=== PATIENT | female | born 1980 | race African-American/Black ===

== ENCOUNTER 2020-02-21 14:00 | Outpatient (CLI) | payer OTHER, BC, SELFPAY ==
[2020-02-21 15:08] LABS: Hemoglobin 13.2 g/dL (12.0-15.0); Mean Corpuscular HGB Conc 35.7 g/dl (32-36); Mean Corpuscular Hemoglobin 29.3 pg (26-34); Mean Platelet Volume 10.9 fl (7.4-10.4); Platelet Count Result 159 k/mm3 (150-375); Red Blood Count 4.51 M/mm3 (4.2-5.4); White Blood Count 9.4 K/mm3 (4.5-10.0)
--- NOTE | 2020-02-21 17:23 | PM.IMHP ---
H&P: HPI History of Present Illness Date/Time: 02/21/20 17:23 Chief complaint: PRE OP Narrative: Deanna Palafox is a 40 year old female [id number] @39 weeks ega Due 02/28/20 by 1st trimester ultrasound with a history of AMA- negative workup and genetics; Prior c/s who desires repeat c section; MTHFR on rx now being admitted for Repeat Low Transverse C section under spinal anesthesia with duramorph. I have explained her condition procedure and risks involved including but not limited to : bleeding, infection, injury to bladder bowel baby, dvt, pneumonia, wound infection, endometritis, uti and risk of anesthesia. She understands accepts and agrees to proceed Informed consent obtained. Review of Systems Review of Systems: All systems reviewed & are unremarkable except as noted in HPI and below Constitutional: Constitutional: Reports no additional constitutional complaints Eyes: Eyes: Reports no additional eye complaints ENT: Reports system reviewed and no additional complaints, except as documented Cardiovascular: Cardiovascular: Reports no additional cardiovascular complaints Respiratory: Respiratory: Reports no additional respiratory complaints Gastrointestinal: Gastrointestinal: Reports no additional gastrointestinal complaints Genitourinary: Genitourinary: Reports no additional female genitourinary complaints Musculoskeletal: Musculoskeletal: Reports no additional musculoskeletal complaints Integumentary/Breasts: Skin/Breast: Reports system reviewed and no additional complaints, except as docu Neurologic: Reports system reviewed and no additional complaints, except as documented Psychiatric: Psychiatric: Reports no additional psychiatric complaints Endocrine: Endocrine: Reports no additional endocrine complaints Hematologic/Lymphatic: Hematologic/Lymphatic: Reports no additional hematologic/lymphatic complaints Allergic/Immunologic: Allergic/Immunologic: Reports no additional allergic/immunologic complaints [facility] Past Medical History Medical History (Updated 02/21/20 @ 17:50 by Max Asher MD) Allergic rhinitis AMA (advanced maternal age) multigravida 35+ Delivered by delivery following previous delivery PATTI (generalized anxiety disorder) GERD (gastroesophageal reflux disease) 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 MDD (major depressive disorder) SAB (spontaneous ) 2007 Sinusitis UTI (urinary tract infection) Surgical History Surgical History (Updated 02/21/20 @ 17:39 by Max Asher MD) Previous section 2007 Previous section 2016 Family History Family History Mother Presence of stent in coronary artery Acute myocardial infarction Grandparent Diabetes mellitus Breast cancer Hypertension Social History Social History Smoking status: Never smoker Second hand tobacco smoke exposure: No Alcohol intake: never Substance use: never Substance use type: does not use Living arrangements: with family Occupation/Education: occupation 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 Gender identity (if verbalized by the patient): Female Sexual Orientation (if Verbalized by the Patient): Straight or Heterosexual Spiritual care concerns: No Agree to blood products: Yes Comments OB history 2006 6week sab no d&c 03/16/08 8-13 male @42 weeks primary LTCS CPD 05/07/16 9-6 female @40 weeks repeat LTCS Prior c/s Meds Home Medications and Allergies Home Medications Medication Instructions Recorded Confirmed Type PNV cmb#95-ferrous fumarate-FA 1 tablet PO DAILY 01/30/20 01/30/20 History [] Allergies Allergy/AdvReac Type Severity Reaction Status Date / Time cat dander Allergy Itching Verified 01/30/20 15:52 Exam Const: General: no acute distress HENMT: H
[2020-02-22 10:01] LABS: Rapid Plasma Reagin Non-Reactive (NonReactive)
== END 2020-02-21 14:01 | disposition home or self-care (01) ==
LOC: ANHLAB 14:04
PROVIDERS: PCP Obstetrics & Gynecology; Visit Provider Obstetrics & Gynecology
DX: Z34.93 Encounter for supervision of normal pregnancy, unspecified, third trimester (principal); Z3A.00 Weeks of gestation of pregnancy not specified
CPT/HCPCS: 36415; 85027; 86592; 86850; 86900; 86901

== ENCOUNTER 2020-02-22 08:31 | Inpatient (IN) | payer OTHER, BC, SELFPAY ==
--- NOTE | 2020-01-30 16:18 | PC.NURSE ---
VERIFIED WITH OR SCHEDULE AND PATIENT-C/S ON 02/22/20 AT 1030 PATIENT GIVEN REQUISITION FOR PRE-OP LAB DRAW ON 02/21/20
--- NOTE | 2020-02-21 17:55 | HP_ITS ---
This report was moved to the correct visit, [id number] on 02/27/20. Original report was signed by Dr. Asher on 02/21/20 at 175. H&P: HPI History of Present Illness Date/Time: 02/21/20 17:23 Chief complaint: PRE OP Narrative: Deanna Palafox is a 40 year old female [id number] @39 weeks ega Due 02/28/20 by 1st trimester ultrasound with a history of AMA- negative workup and genetics; Prior c/s who desires repeat c section; MTHFR on rx now being admitted for Repeat Low Transverse C section under spinal anesthesia with duramorph. I have explained her condition procedure and risks involved including but not limited to : bleeding, infection, injury to bladder bowel baby, dvt, pneumonia, wound infection, endometritis, uti and risk of anesthesia. She understands accepts and agrees to proceed Informed consent obtained. Review of Systems Review of Systems: All systems reviewed & are unremarkable except as noted in HPI and below Constitutional: Constitutional: Reports no additional constitutional complaints Eyes: Eyes: Reports no additional eye complaints ENT: Reports system reviewed and no additional complaints, except as documented Cardiovascular: Cardiovascular: Reports no additional cardiovascular complaints Respiratory: Respiratory: Reports no additional respiratory complaints Gastrointestinal: Gastrointestinal: Reports no additional gastrointestinal complaints Genitourinary: Genitourinary: Reports no additional female genitourinary complaints Musculoskeletal: Musculoskeletal: Reports no additional musculoskeletal complaints Integumentary/Breasts: Skin/Breast: Reports system reviewed and no additional complaints, except as docu Neurologic: Reports system reviewed and no additional complaints, except as documented Psychiatric: Psychiatric: Reports no additional psychiatric complaints Endocrine: Endocrine: Reports no additional endocrine complaints Hematologic/Lymphatic: Hematologic/Lymphatic: Reports no additional hematologic/lymphatic complaints Allergic/Immunologic: Allergic/Immunologic: Reports no additional allergic/immunologic complaints [facility] Past Medical History Medical History (Updated 02/21/20 @ 17:50 by Max Asher MD) Allergic rhinitis AMA (advanced maternal age) multigravida 35+ Delivered by delivery following previous delivery PATTI (generalized anxiety disorder) GERD (gastroesophageal reflux disease) Heterozygous MTHFR mutation [id number] MDD (major depressive disorder) SAB (spontaneous ) 2007 Sinusitis UTI (urinary tract infection) Surgical History Surgical History (Updated 02/21/20 @ 17:39 by Max Asher MD) Previous section 2008 Previous section 2016 Family History Family History Mother Presence of stent in coronary artery Acute myocardial infarction Grandparent Diabetes mellitus Breast cancer Hypertension Social History Social History Smoking status: Never smoker Second hand tobacco smoke exposure: No Alcohol intake: never Substance use: never Substance use type: does not use Living arrangements: with family Occupation/Education: occupation 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
[2020-02-22] VITALS (57 sets, daily range): BP systolic 115–143; BP diastolic 65–90; PULSE 68–107; RESP 16–18; TEMP 36.6–36.8; O2SAT 94–100; BMI 39.9
--- NOTE | 2020-02-22 09:14 | WPDOBADMIT ---
Obstetrics - Admit Note Admission Note: record reviewed. No pertinent additions to the history and/or any subsequent changes in the physical findings that are not consistent with the expected course of the were found. Additions to the history and/or subsequent changes in the physical findings follow. None. Preop for repeat c section under spinal no changes to H&P
--- NOTE | 2020-02-22 09:15 | WPDHPUPDATE1 ---
History and Physical Update Update Date/Time: 02/22/20 09:15 History and Physical has been reviewed, including an updated exam of the patient. There are NO changes in the patient's condition. Risks, benefits, and alternatives have been discussed and questions answered. Patient agrees to proceed with procedure.
[2020-02-22] MEDS: LACTATED RINGERS 1,000 ML 125 ML IV CONT (09:29)
--- NOTE | 2020-02-22 09:58 | LDADM ---
This patient, Deanna Palafox, was admitted to Labor/Delivery/Recovery 119 on 02/22/20 at 08:31. Plans for section, pain management and were discussed with patient. Patient/family oriented to hospital policies and general routines including ID bracelet, bed and alarms, visiting hours, pain management, procedures, bathroom and other care routines, personal items, smoking policy, room service/diet and guest tray routines, security routines, call light, and visiting hours. Patient/Family are encouraged to report perceived risks to care and to ask questions if they do not understand what they are told or what they should do. See OBIX for further documentation.
--- NOTE | 2020-02-22 10:07 | P.PNAN_ITS ---
Anes - Initial Pre Proc Eval Procedure: Operation Date: 02/22/20 10:30 Proposed Procedures p Repeat Low Transverse Section - Max Asher MD Date/Time: 02/22/20 10:07 Surgeon: Max Asher MD Pre Op Diagnosis: C Section Patient Data Age: 40 Gender: F Height: 5 ft 8 in Weight: 119 kg Last Vital Signs Pulse 106 H 02/22/20 09:03 BP 143/81 H 02/22/20 09:03 Allergies Allergy/AdvReac Type Severity Reaction Status Date / Time cat dander Allergy Itching Verified 01/30/20 15:52 Home Medications Medication Instructions Recorded Confirmed Type PNV cmb#95-ferrous fumarate-FA 1 tablet PO DAILY 01/30/20 01/30/20 History [] Patient hx anesthesia problems: post op nausea/vomiting Family hx anesthesia problems: none PMFSH Past Medical History Medical History Allergic rhinitis AMA (advanced maternal age) multigravida 35+ Delivered by delivery following previous delivery PATTI (generalized anxiety disorder) GERD (gastroesophageal reflux disease) Heterozygous MTHFR mutation [id number] MDD (major depressive disorder) SAB (spontaneous ) 2007 Sinusitis UTI (urinary tract infection) Surgical History Surgical History Previous section 2008 Previous section 2016 Family History Family History Mother Presence of stent in coronary artery Acute myocardial infarction Grandparent Diabetes mellitus Breast cancer Hypertension Social History Social History Smoking status: Never smoker Second hand tobacco smoke exposure: No Alcohol intake: never Substance use: never Substance use type: does not use 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 Gender identity (if verbalized by the patient): Female Spiritual care concerns: No Agree to blood products: Yes Anes - Eval Final PreProcedure Day of Procedure 02/22/20 10:07 Patient weight: morbidly obese Heart: regular rate and rhythm Lungs: clear to auscultation Airway: Mallampati scale class II Neurological: alert and oriented Last oral intake: >/= 8 hours ASA classification: III Emergent: no Anesthetic plan: proceed Anesthesia type and monitoring: regional spinal and standard monitoring Informed Consent: The patient's anesthetic plan and its attendant risks and benefits were discussed with the patient/family/POA. Questions were solicited and answers provided to the satisfaction of the patient/family/POA.
[2020-02-22] MEDS: ceFAZolin 2 GM/D5W 50 ML 2 GM/50 ML BAG IVPB (10:11)
--- NOTE | 2020-02-22 11:11 | PM.OBPRVD ---
OB - Delivery Note Procedure Delivery date: 02/22/20 Procedure: Procedures Operation Date: 02/22/20 10:30 Repeat LOw transverse c section withdelivery of viable female and placenta events: Previous Intrapartal events: None Delivery monitor: external FHT and external uterine Route of delivery: Specimen: Yes (placenta) Estimated blood loss (mL): 540 Anesthesia type: Spinal Disposition: PACU Complications: none Baby Date of : 02/22/20 Time of : 10:38 Weeks of gestation at delivery: 40 Infant gender: Female Weight (pounds): 8 Weight (ounces): 13 presentation: vertex position: Left Occiput Anterior Placenta delivery description: Manual Removal and Normal Configuration cord vessel description: 3 Vessels and Nuchal Cord score one minute: 9 score five minutes: 9
--- NOTE | 2020-02-22 11:17 | PM.PROC ---
Procedure Note - Detailed Date of procedure: 02/22/20 Pre-op diagnosis: C Section TERM Prior c section desires repeat c section AMA-Advanced Maternal Age MTHFR PATTI MDD Post-op diagnosis: same (Delivered Viable Female infant) Procedure performed: repeat c section with delivery of viable female infant and placenta Description of procedure: The patient was given informed consent she was taken to the operating room where spinal anesthetic was administered she was placed in the supine position had a Portillo catheter inserted her abdomen was shaved and then her abdomen was prepped and draped in the usual sterile fashion. An anesthesiometer was used to test for adequate anesthesia and a time-out was performed A Pfannenstiel incision was made to the skin in the old scar was excised using electrocautery. The fascia was entered with electrocautery extended laterally and undermined inferiorly and superiorly. The rectus muscles were in the midline and the peritoneum was opened and digitally dissected a transverse incision was then made to the uterus and upon entry clear amniotic fluid was identified. the vertex was then delivered to the abdominal incision without difficulty a nuchal cord was reduced the viable female infant was delivered and placed onto the maternal abdomen where the nose and throat were bulb suctioned cord was clamped and cut time of delivery 10:38 a.m. on 02/22/2020 scores 9 and 9 at 1 and 5 minutes respectively. Cord gases were obtained cord blood was obtained 10 units of Pitocin was given intra myometrially the placenta was delivered manually intact with a three-vessel cord. The blood clots and membranes removed from the intrauterine cavity with the uterus externalized the uterus incision was then repaired in 2 layers with 0 Vicryl suture in a running interlocking fashion the 2nd being an imbricating stitch and good hemostasis resulted. Following this blood clots removed from the cul-de-sac both lateral gutters with the uterus returned to the peritoneal cavity the sponge needle and instrument counts were correct. The anterior peritoneum and rectus muscles were appropriately reapproximated with 0 Vicryl suture in a running fashion. The fascia was then closed with 2. Quill S RS system bilaterally. The subcutaneous tissues were irrigated with saline and hemostasis obtained by cauterization Floridalma's fascia reapproximated with 3 0 plain in a running fashion. The skin was then closed with absorbable vivian in his or by NS or be followed by Dermabond followed by Aquacel dressing the patient was taken to the recovery room in stable condition. The baby was taken to the nursery in stable condition the mom was taken to the recover room on OB in stable condition. Antibiotic prophylaxis was given with Ancef 2 g prior to delivery VTE prophylaxis with SCDs Counts correct Uterus tubes and ovaries normal Baby girl named Rowan 8 lb 13 oz 4010 g Apgars 9 and 9 time of delivery 1038 a.m. 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
[2020-02-22] MEDS: MORPHINE SULFATE 2 MG/ML INJ 3 MG IV PUSH ×3 (11:53→12:22)
[2020-02-22] MEDS: ONDANSETRON INJ 4 MG/2 ML VIAL IV PUSH (12:03)
[2020-02-22] MEDS: diphenhydrAMINE HCl INJ 50 MG/ML VIAL 25 MG IV PUSH (12:03)
[2020-02-22] MEDS: KETOROLAC 30 MG/ML VIAL (*BKC) IV PUSH (12:49)
[2020-02-22] MEDS: OXYTOCIN 30 UNITS/NS 500 ML 30 UNITS/500 ML BAG 125 UNITS IV CONT (12:55)
--- NOTE | 2020-02-22 13:58 | PM.OBDSVD ---
DS: Admitting Diagnosis Admitting Diagnosis Admitting Diagnosis: Repeat C Section Term AMA-advanced maternal age MTHFR MDD PATTI Allergic rhinitis DS: Discharge Diagnosis Discharge Diagnosis (1) Term delivered: Code(s): O80 - Encounter for full-term uncomplicated delivery Status: Acute (2) Delivered by delivery following previous delivery: Code(s): O34.219 - Maternal care for unspecified type scar from previous delivery Status: Acute (3) Heterozygous MTHFR mutation [id number]: Code(s): E72.12 - Methylenetetrahydrofolate reductase deficiency Status: Acute (4) MDD (major depressive disorder): Code(s): F32.9 - Major depressive disorder, single episode, unspecified Status: Acute (5) PATTI (generalized anxiety disorder): Code(s): F41.1 - Generalized anxiety disorder Status: Acute (6) Allergic rhinitis: Code(s): J30.9 - Allergic rhinitis, unspecified Status: Acute (7) AMA (advanced maternal age) multigravida 35+: Code(s): O09.529 - Supervision of elderly multigravida, unspecified trimester Status: Acute OB - DS: Summary Hospital Course Time spent discussing smoking cessation with patient: 3 to 10 minutes OB Procedures : NST and Ultrasound OB Procedures Intrapartum: (repeat low transverse) low cervical, transverse OB Procedures: : Antibiotics Peripartum Data Delivery Method: Section Procedures: Procedures Operation Date: 02/22/20 10:30 repeat low transverse c section complications: none Fowler 1: Gender: Female (JEWELS) Disposition of : home Status at Discharge Functional status at discharge: independent ambulation Overall status at discharge: patient is back to baseline Time Spent with Patient Time attestation: Total time spent providing and/or coordinating discharge services: Time spent: Less than 30 minutes Exam Const: General: comfortable and no acute distress Orientation/consciousness: patient oriented x3 Limitations: no limitations HENMT: Head: normal to inspection Ears: hearing grossly normal bilaterally General nose exam: Normal external nose present Face and sinus: normal facial exam Mouth: Yes Normal oral and palatal mucosa present Throat: posterior oropharynx normal Eyes: General: appearance normal, both eyes and all related structures Neck: Neck: normal visual inspection and full ROM Chest: Breast/axilla inspection: normal inspection of the breasts Resp: Effort & Inspection: normal respiratory effort Auscultation: clear to auscultation bilaterally Cardio: Rate: regular rate GI: GI Palp: Yes Soft to palpation Percussion: Yes normal to percussion Auscultation: normal bowel sounds : General: Yes bladder normal to inspection Back/Spine/Pelvis: Back: no CVA tenderness Cervical Spine: normal cervical lordosis Skin: General skin exam: normal color Neuro: General: oriented to person, oriented to place, oriented to time, patient oriented x3, gait normal, tone normal, moves all extremities and Normal light touch and pain sensation Cranial nerves: Yes CN's II-XII intact bilaterally Cognition (Neuro): normal cognition Speech: normal speech Gait exam (Neuro): Normal gait present Motor exam (neuro): 5/5 motor strength present throughout Sensory Exam: normal sensation Extrem: General: normal to inspection, full ROM, capillary refill normal and edema Psych: Appearance: grossly normal and well kempt Mental Status: mental status grossly normal Affect: normal affect Attitude: cooperative Thought content: Yes Normal thought content present Judgement: Good judgement present (Psych) Discharge Plan Discharge Attending physician on discharge: Max Asher Discharging Clinician: Max Asher Anticipated Discharge Date/Time: 02/24/20 13:55 Patient Disposition: Home, Self-Car
--- NOTE | 2020-02-22 16:09 | PC.NURSE ---
1410-Patient transferred to post room #284 via stretcher. Support person present. Oriented to unit, room, information board, rooming in, admission packet and security measures. Patient verbalizes understanding.
[2020-02-22] MEDS: IBUPROFEN 400 MG TABLET 800 MG PO ×2 (16:50→22:48)
[2020-02-22] MEDS: DEXTROSE 5%/0.45% SOD CHL 1,000 ML 125 ML IV CONT (17:34)
[2020-02-22] MEDS: SIMETHICONE 80 MG TAB.CHEW PO ×2 (19:58→22:47)
[2020-02-23 04:50] VITALS: BP 105/65; PULSE 91; RESP 16; TEMP 36.2
[2020-02-23] MEDS: SIMETHICONE 80 MG TAB.CHEW PO ×5 (04:55→20:30)
[2020-02-23] MEDS: IBUPROFEN 400 MG TABLET 800 MG PO ×3 (04:55→20:30)
[2020-02-23 06:03] LABS: Basophils Percent Auto 0.2 % (0.2-1.2); Eosinophils Absolute Auto 0.1 K/mm3 (0-0.3); Eosinophils Percent Auto 0.4 % (0-4.4); Hematocrit 33.8 % (37.0-47.0); Immature Granulocyte Absolute 0.15 K/mm3 (0.00-0.031); Immature Granulocyte Percent A 1.1 % (0-0.5); Lymphocytes Absolute Auto 1.91 K/mm3 (0.9-3.2); Lymphocytes Percent Auto 14.5 % (18.3-44.2); Mean Corpuscular HGB Conc 35.5 g/dl (32-36); Mean Corpuscular Hemoglobin 29.1 pg (26-34); Mean Platelet Volume 10.7 fl (7.4-10.4); Monocytes Absolute Auto 1.1 K/mm3 (0.1-0.6); Monocytes Percent Auto 8.2 % (2.6-8.5); Neutrophils Percent Auto 75.6 % (45.5-73.1); Platelet Count Result 155 k/mm3 (150-375); Red Blood Count 4.12 M/mm3 (4.2-5.4); Red Cell Distribution Width 12.8 % (11.5-14.5); White Blood Count 13.2 K/mm3 (4.5-10.0)
--- NOTE | 2020-02-23 07:00 | PC.NURSE ---
PT introductions made and plan of care discussed per post op c section, pain management, bottle feeding, daily care activities. PT verbalized understanding of such care.
--- NOTE | 2020-02-23 07:40 | WPDANLDPN2 ---
Anes-Prog Note L&D Date/Time: 02/23/20 07:40 Comfortable throughout: section Neuraxial method: spinal Epidural/Spinal procedure site: clean & non-tender Neuro status: Neuro function grossly intact. Cardiovascular status: normal Respiratory status: normal Airway patency: baseline Mental status: baseline Post-Op hydration status: normal Vital Signs: Last Vital Signs Temp 36.2 C L 02/23/20 04:50 Pulse 91 02/23/20 04:50 Resp 16 02/23/20 04:50 BP 105/65 02/23/20 04:50 Pulse Ox 98 02/22/20 23:00 I/O: Intake & Output 02/22/20 02/22/20 02/23/20 15:59 23:59 07:59 Intake Total 50 1691 400 Output Total 900 5091 493 Balance -850 -309 -200 Post-procedural complaints: none Patient feedback: Patient satisfied with anesthetic care.
--- NOTE | 2020-02-23 07:40 | WPDANLDNPN2 ---
Anes-Prog Note L&D-Neuraxial Date/Time: 02/23/20 07:40 Neuraxial medications: intrathecal PF morphine Opiod-related complaints: none Patient feedback: Patient satisfied with post-operative pain management.
--- NOTE | 2020-02-23 07:45 | PM.OBPNVD ---
OB - PN: Subj Subjective Date/time seen: 02/23/20 07:46 40yo AAF G3 now P3 POD#1 after Repeat c/s of viable female no complaints Patient comments: no complaints, pain well controlled, incisional pain and tolerating diet baby status: doing well and bottle feeding well feeding status: exclusively bottle feeding OB - PN: Obj Data Labs CBC & Chem 7: 02/23/20 05:05 Labs: Laboratory Results - last 24 hr 02/23/20 05:05 WBC 13.2 H RBC 4.12 L Hgb 12.0 Hct 33.8 L MCV 82.0 MCH 29.1 MCHC 35.5 RDW 12.8 Plt Count 155 MPV 10.7 H Immature Gran % (Auto) 1.1 H Neut % (Auto) 75.6 H Lymph % (Auto) 14.5 L Parmer % (Auto) 8.2 Eos % (Auto) 0.4 Baso % (Auto) 0.2 Lymph # (Auto) 1.91 Parmer # (Auto) 1.1 H Eos # (Auto) 0.1 Baso # (Auto) 0.0 Abs Immat Gran (auto) 0.15 H Absolute Neuts (auto) 10.0 H Absolute Nucleated RBC 0.0 Nucleated RBC % 0.0 OB - PN A/P Assessment and Plan (1) Term delivered: Code(s): O80 - Encounter for full-term uncomplicated delivery Status: Acute (2) Delivered by delivery following previous delivery: Code(s): O34.219 - Maternal care for unspecified type scar from previous delivery Status: Acute Assessment and Plan: continue post op care (3) AMA (advanced maternal age) multigravida 35+: Code(s): O09.529 - Supervision of elderly multigravida, unspecified trimester Status: Acute (4) Heterozygous MTHFR mutation [id number]: Code(s): E72.12 - Methylenetetrahydrofolate reductase deficiency Status: Acute (5) PATTI (generalized anxiety disorder): Code(s): F41.1 - Generalized anxiety disorder Status: Acute (6) MDD (major depressive disorder): Code(s): F32.9 - Major depressive disorder, single episode, unspecified Status: Acute (7) Allergic rhinitis: Code(s): J30.9 - Allergic rhinitis, unspecified Status: Acute Time Spent With Patient Time: Total time spent is greater than 50% in coordination of care (as documented) at patient's floor/unit and/or counseling patient:30 min Review of Systems Review of Systems: All systems reviewed & are unremarkable except as noted in HPI and below Constitutional: Constitutional: Reports no additional constitutional complaints Cardiovascular: Cardiovascular: Reports no additional cardiovascular complaints Respiratory: Respiratory: Reports no additional respiratory complaints Gastrointestinal: Gastrointestinal: Reports no additional gastrointestinal complaints Genitourinary: Genitourinary: Reports no additional female genitourinary complaints Integumentary/Breasts: Skin/Breast: Reports system reviewed and no additional complaints, except as docu Neurologic: Reports system reviewed and no additional complaints, except as documented Exam Const: General: comfortable, alert and awake Orientation/consciousness: patient oriented x3 Chest: Breast/axilla inspection: normal inspection of the breasts Breast/axilla palpation: normal palpation of the breasts Resp: Effort & Inspection: normal respiratory effort Auscultation: clear to auscultation bilaterally Cardio: Rate: regular rate GI: Inspection: normal to inspection and incision (clean dry intact) Percussion: Yes normal to percussion Auscultation: normal bowel sounds : General: Yes no CVA tenderness Urinary Catheter: Urinary Catheter: patent and draining and urine clear Psych: Appearance: grossly normal Mental Status: mental status grossly normal Affect: normal affect Attitude: cooperative Judgement: Good judgement present (Psych)
[2020-02-23] MEDS: DOCUSATE SODIUM 100 MG CAPSULE PO ×2 (09:54→17:25)
[2020-02-23 10:00] VITALS: BP 110/68; PULSE 88; RESP 18; TEMP 36.6; O2SAT 98
--- NOTE | 2020-02-23 10:51 | PC.NURSE ---
Patient viewed the discharge video Mother & Baby Care, The First Two Weeks . Patient was given the opportunity and encouraged to ask questions. Patient verbalized understanding of information shared and has been given the mother/baby guide for home reference.
[2020-02-23 20:30] VITALS: BP 128/72; PULSE 90; RESP 18; TEMP 36.8
[2020-02-23] MEDS: diphenhydrAMINE HCl CAP 25 MG CAPSULE 50 MG PO (22:39)
[2020-02-24] MEDS: SIMETHICONE 80 MG TAB.CHEW PO ×2 (05:33→09:31)
[2020-02-24] MEDS: IBUPROFEN 400 MG TABLET 800 MG PO (05:33)
--- NOTE | 2020-02-24 08:00 | PC.NURSE ---
PT introductions made and plan of care discussed per post op c section, pain management, bottle feeding, daily care activities and pending discharge to home. PT verbalized understanding of such care.
--- NOTE | 2020-02-24 08:24 | P.PNOB_ITS ---
OB - PN: Subj Subjective Date/time seen: 02/24/20 08:24 Interval history: POD#2 repeat c/s Patient comments: no complaints, pain well controlled, tolerating diet and flatus present [place] baby status: doing well and bottle feeding well feeding status: exclusively bottle feeding OB - PN: Obj Data Labs CBC & Chem 7: 02/23/20 05:05 OB - PN A/P Assessment and Plan (1) Term delivered: Code(s): O80 - Encounter for full-term uncomplicated delivery Status: Acute (2) Delivered by delivery following previous delivery: Code(s): O34.219 - Maternal care for unspecified type scar from previous delivery Status: Acute Assessment and Plan: discharge to home [id number] (3) 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: Code(s): E72.12 - Methylenetetrahydrofolate reductase deficiency Status: Acute (4) AMA (advanced maternal age) multigravida 35+: Code(s): O09.529 - Supervision of elderly multigravida, unspecified trimester Status: Acute (5) PATTI (generalized anxiety disorder): Code(s): F41.1 - Generalized anxiety disorder Status: Acute (6) MDD (major depressive disorder): Code(s): F32.9 - Major depressive disorder, single episode, unspecified Status: Acute (7) GERD (gastroesophageal reflux disease): Code(s): K21.9 - Gastro-esophageal reflux disease without esophagitis Status: Acute (8) Allergic rhinitis: Code(s): J30.9 - Allergic rhinitis, unspecified Status: Acute Time Spent With Patient Time: Total time spent is greater than 50% in coordination of care (as documented) at patient's floor/unit and/or counseling patient: Review of Systems Review of Systems: All systems reviewed & are unremarkable except as noted in HPI and below Constitutional: Constitutional: Reports no additional constitutional complaints Cardiovascular: Cardiovascular: Reports no additional cardiovascular complaints Respiratory: Respiratory: Reports no additional respiratory complaints Gastrointestinal: Gastrointestinal: Reports no additional gastrointestinal complaints Genitourinary: Genitourinary: Reports no additional female genitourinary complaints Integumentary/Breasts: Skin/Breast: Reports system reviewed and no additional complaints, except as docu Neurologic: Reports system reviewed and no additional complaints, except as documented Exam Const: General: comfortable, no acute distress, alert and awake Orientation/consciousness: patient oriented x3 Chest: Breast/axilla inspection: normal inspection of the breasts Breast/axilla palpation: normal palpation of the breasts Resp: Effort & Inspection: normal respiratory effort Auscultation: clear to auscultation bilaterally Cardio: Rate: regular rate GI: Auscultation: normal bowel sounds : General: Yes no CVA tenderness Psych: Appearance: grossly normal Mental Status: mental status grossly normal Affect: normal affect Attitude: cooperative Judgement: Good judgement present (Psych)
[2020-02-24 09:30] VITALS: BP 127/73; PULSE 92; RESP 18; TEMP 37.3; O2SAT 100
[2020-02-24] MEDS: DOCUSATE SODIUM 100 MG CAPSULE PO (09:31)
--- NOTE | 2020-02-24 09:32 | PC.NURSE ---
Patient was given the opportunity to view the discharge video Mother & Baby Care, The First Two Weeks and to ask questions. Patient declined viewing the video and has been given the mother/baby guide for home reference.
--- NOTE | 2020-02-24 11:00 | PC.NURSE ---
PT received discharge instructions per protocol and verbalized understanding of such instructions.
--- NOTE | 2020-02-24 11:22 | PC.NURSE ---
PT discharged to home ambulatory accompanied by infant and spouse and taken to waiting car. Follow up appts confirmed
[2020-02-26 10:13] VITALS: BP 128/84; PULSE 86; RESP 20; TEMP 36.6; O2SAT 98
== END 2020-02-24 11:22 | disposition home or self-care (01) | DRG 787 ==
LOC: ANHLDR 14:02 → ANHOB2 14:14
PROVIDERS: Admitting Provider Obstetrics & Gynecology; Visit Provider Obstetrics & Gynecology
PROC: 10D00Z1 Extraction of Products of Conception, Low, Open Approach (ICD-10-PCS; CPT 59514; principal; 2020-02-22 10:30)
DX: O34.211 Maternal care for low transverse scar from previous cesarean delivery (principal); E72.12 Methylenetetrahydrofolate reductase deficiency; O69.1XX0 Labor and delivery complicated by cord around neck, with compression, not applicable or unspecified; O99.344 Other mental disorders complicating childbirth; F41.8 Other specified anxiety disorders; Z3A.39 39 weeks gestation of pregnancy; Z37.0 Single live birth
CPT/HCPCS: 36415; 85025; 88307; A9270; J0131; J0690; J1200; J1885; J2270; J2274; J2370; J2405; J2590; J7120